=== PATIENT | male | born 1975 | race Caucasian/White ===

== ENCOUNTER 2019-04-06 22:47 | Emergency (ER) | payer SELFPAY ==
[~2019-04-06] VITALS: Ht 167.6 cm; Wt 70.0 kg
[2019-04-06] MEDS ORDERED: ONDANSETRON HCL 4MG/2ML INJ IV STA (23:44)
[2019-04-06] MEDS ORDERED: FOLIC ACID 1 MG, THIAMINE HCL 100 MG, MVI, ADULT NO.1 10 ML in DEXTROSE 5% WATER 1,000 ML IV ONE ×4 (23:45)
[2019-04-06] MEDS ORDERED: TETANUS, DIPHTHERIA, PERTUSSIS VAC/PF 0.5ML (>7YR OLD) IM ONE (23:45)
[2019-04-07 00:18] LABS: BASOPHILS % 1.1 % (0.0-2.0); EOSINOPHILS % 0.9 % (0.0-5.0); HEMATOCRIT. 33.6 % (42.0-52.0); HEMOGLOBIN. 11.4 g/dL (14.0-18.0); MEAN CORPUSCULAR HEMOGLOBIN 29.2 pg (28.0-32.0); MEAN CORPUSCULAR VOLUME 86.2 fL (80.0-94.0); PLATELET 75 x1000/uL (130-400); RED CELL DISTRIBUTION WIDTH 19.8 % (11.6-14.6)
[2019-04-07 00:24] LABS: CHLORIDE 111 mEq/L (98-107)
[2019-04-07 00:40] LABS: INR 1.1; PROTHROMBIN TIME 11.6 sec (9.6-11.0)
[2019-04-07] MEDS ORDERED: IOHEXOL-300 100 ML BOTTLE ONE (03:57)
[2019-04-07 04:00] VITALS: BP 106/69
== END 2019-04-07 04:25 | disposition home or self-care (01) ==
LOC: ER 22:47 → EDBD 22:47 → ER 04-07 04:25
DX: S06.0X0A Concussion without loss of consciousness, initial encounter (principal); S01.511A Laceration without foreign body of lip, initial encounter; S09.90XA Unspecified injury of head, initial encounter; T51.0X1A Toxic effect of ethanol, accidental (unintentional), initial encounter; G93.40 Encephalopathy, unspecified; F10.21 Alcohol dependence, in remission; Z98.890 Other specified postprocedural states; X58.XXXA Exposure to other specified factors, initial encounter; Y93.89 Activity, other specified; Y92.89 Other specified places as the place of occurrence of the external cause; Y99.8 Other external cause status; Y90.8 Blood alcohol level of 240 mg/100 ml or more
CPT/HCPCS: 36415; 70450; 70486; 71045; 72125; 74177; 80053; 80320; 85025; 85610; 86850; 86900; 86901; 90471; 90715; 96365; 96375; 99291; J2405; J3411; J3490; J7070; Q9967; Z7610; G0480

== ENCOUNTER 2019-10-23 02:55 | Emergency (ER) | payer SELFPAY ==
[~2019-10-23] VITALS: Ht 162.6 cm; Wt 66.0 kg
[2019-10-23] MEDS ORDERED: ONDANSETRON HCL 4MG/2ML INJ IV STA (04:36)
[2019-10-23 04:52] LABS: CLARITY URINE CLEAR (CLEAR); COLOR URINE YELLOW (YELLOW); KETONES URINE NEGATIVE (NEGATIVE); LEUKOCYTE ESTERASE URINE NEGATIVE (NEGATIVE); NITRITE URINE NEGATIVE (NEGATIVE); OCCULT BLOOD URINE NEGATIVE (NEGATIVE); PH URINE 5.5 (4.5-8.0); PROTEIN URINE NEGATIVE (NEGATIVE); SPECIFIC GRAVITY URINE 1.014 (1.005-1.030); UROBILINOGEN URINE 0.2 E.U./dL (0.2-1.0)
[2019-10-23 04:56] LABS: INR 1.1; PROTHROMBIN TIME 11.7 sec (9.6-11.0)
[2019-10-23 04:59] LABS: CHLORIDE 111 mEq/L (98-107)
[2019-10-23 05:04] LABS: HEMATOCRIT. 28.4 % (42.0-52.0); HEMOGLOBIN. 8.9 g/dL (14.0-18.0); MEAN CORPUSCULAR HEMOGLOBIN 24.1 pg (28.0-32.0); MEAN CORPUSCULAR VOLUME 76.5 fL (80.0-94.0); MEAN PLATELET VOLUME 8.4 fl (7.4-10.4); PLATELET 136 x1000/uL (130-400); RED BLOOD CELL COUNT 3.72 mill/uL (4.7-6.1); RED CELL DISTRIBUTION WIDTH 19.5 % (11.6-14.6)
[2019-10-23] MEDS ORDERED: SODIUM CHLORIDE 0.9% 1,000 ML IV ONE ×2 (05:13→10:00)
[2019-10-23] MEDS ORDERED: MAGNESIUM/ALUMINUM HYDROXIDE/SIMETHICONE 30ML UDC PO STA (05:22)
[2019-10-23 05:51] LABS: ETHANOL BLOOD 484 mg/dL
[2019-10-23 06:03] LABS: ATYPICAL LYMPHOCYTES 1
[2019-10-23 06:04] LABS: PLATELET ESTIMATE NORMAL
[2019-10-23] MEDS ORDERED: CHLORDIAZEPOXIDE 25MG CAPSULE PO ONE (10:00)
[2019-10-23 10:15] VITALS: BP 105/64
== END 2019-10-23 10:51 | disposition home or self-care (01) ==
LOC: ER 02:55
DX: K70.10 Alcoholic hepatitis without ascites (principal); F10.129 Alcohol abuse with intoxication, unspecified; Y90.8 Blood alcohol level of 240 mg/100 ml or more; D64.9 Anemia, unspecified
CPT/HCPCS: 36415; 80053; 80320; 81003; 83690; 85025; 85610; 96374; 99283; J2405; J7030; Z7610; G0480

== ENCOUNTER 2020-04-04 18:37 | Emergency (ER) | payer SELFPAY ==
[~2020-04-04] VITALS: Ht 172.7 cm; Wt 68.0 kg
[2020-04-04 21:16] LABS: CHLORIDE 109 mEq/L (98-107)
[2020-04-04 21:39] LABS: ETHANOL BLOOD 379 mg/dL
[2020-04-05 05:28] VITALS: BP 112/70
== END 2020-04-05 05:30 | disposition home or self-care (01) ==
LOC: ER 18:37
DX: F10.129 Alcohol abuse with intoxication, unspecified (principal); I49.9 Cardiac arrhythmia, unspecified; Y90.8 Blood alcohol level of 240 mg/100 ml or more
CPT/HCPCS: 36415; 80048; 80320; 84484; 93005; 99284; G0480